=== PATIENT | female | born 1970 | race Caucasian/White ===

== ENCOUNTER 2025-02-11 17:11 | Inpatient (IN) | payer OTHER ==
[~2025-02-11] VITALS: Ht 157.5 cm; Wt 65.8 kg
[2025-02-11 17:17] VITALS: O2SAT 98
[2025-02-11 17:48] LABS: HEMATOCRIT. 40.1 % (36.0-48.0); HEMOGLOBIN. 13.8 g/dL (12.0-16.0); MEAN PLATELET VOLUME 7.5 fl (7.4-10.4); PLATELET 270 x1000/uL (130-400); RED BLOOD CELL COUNT 4.57 mill/uL (4.2-5.4); RED CELL DISTRIBUTION WIDTH 13.3 % (11.6-14.6)
[2025-02-11 18:02] LABS: CREATININE 1.0 mg/dL (0.6-1.0); UREA NITROGEN BLOOD 9 mg/dL (9-23)
[2025-02-11 18:03] LABS: PROTEIN TOTAL 7.4 g/dL (6.0-8.3)
[2025-02-11 18:04] LABS: ASPARTATE AMINOTRANSFERASE 32 IU/L (<34); BILIRUBIN DIRECT 0.6 mg/dL (<=3.0); BILIRUBIN TOTAL 2.2 mg/dL (0.1-1.0)
[2025-02-11] MEDS: MORPHINE SULFATE 4 MG/ML INJ (FOR IV/IM USE) IV ONE ×2 (18:17→21:13)
[2025-02-11] MEDS: ONDANSETRON HCL 4MG/2ML INJ IV ONE (18:17)
[2025-02-11] MEDS: SODIUM CHLORIDE 0.9% 1,000 ML IV ONE (18:17)
[2025-02-11 18:19] LABS: HCG SCREEN NEGATIVE
[2025-02-11 18:27] LABS: GLUCOSE URINE NEGATIVE (NEGATIVE); KETONES URINE 2+ (NEGATIVE); LEUKOCYTE ESTERASE URINE 2+ (NEGATIVE); NITRITE URINE NEGATIVE (NEGATIVE); OCCULT BLOOD URINE TRACE (NEGATIVE); PH URINE 5.5 (4.5-8.0); PROTEIN URINE 1+ (NEGATIVE); SPECIFIC GRAVITY URINE 1.024 (1.005-1.030); UROBILINOGEN URINE 1.0 E.U./dL (0.2-1.0)
[2025-02-11 19:00] LABS: CLARITY URINE HAZY (CLEAR); COLOR URINE YELLOW (YELLOW)
[2025-02-11 19:01] LABS: RBC URINE NONE SEEN /hpf (0-2); SQUAMOUS EPITHELIAL CELL URINE 2+ /lpf (RARE/1+)
[2025-02-11 19:02] LABS: BACTERIA URINE 1+
[2025-02-11 19:03] LABS: MUCUS URINE 1+ /lpf (< = 2+)
[2025-02-11 19:14] LABS: BAND% 3.0 % (1.0-6.0); LYMPHOCYTES % MANUAL 5.0 % (20.0-60.0); MONOCYTES % MANUAL 6.0 % (2.0-8.0); NEUTROPHILS % MANUAL 86.0 % (45.0-75.0); PLATELET ESTIMATE NORMAL
[2025-02-11] MEDS: PIPERACILLIN/TAZO 3.375G/50ML 50 ML IV STA (20:02)
[2025-02-11] MEDS ORDERED: NALOXONE HCL 0.4MG/ML VIAL IV PRN (21:45)
[2025-02-11] MEDS ORDERED: MAGNESIUM/ALUMINUM HYDROXIDE/SIMETHICONE 30ML UDC PO PRN (21:45)
[2025-02-11] MEDS ORDERED: HYDROMORPHONE HCL/PF 1MG/ML INJ IV PRN (21:45)
[2025-02-11] MEDS ORDERED: CLONIDINE 0.1MG TABLET PO PRN (21:45)
[2025-02-11] MEDS ORDERED: MORPHINE SULFATE 2 MG/ML INJ (NOT FOR IM USE) IV PRN ×2 (21:45→22:00)
[2025-02-11] MEDS ORDERED: LABETALOL 5MG/ML 4ML INJ IV PRN (21:45)
[2025-02-11] MEDS ORDERED: ONDANSETRON HCL 4MG/2ML INJ IV PRN ×3 (21:45→22:00)
[2025-02-11] MEDS ORDERED: SODIUM CHLORIDE 0.9% 1,000 ML IV SCH (21:45)
[2025-02-11] MEDS ORDERED: HYDRALAZINE 20MG/ML VIAL IV PRN ×2 (21:45)
[2025-02-11] MEDS ORDERED: HYDROCODONE/ACETAMINOPHEN 5/325MG TABLET PO PRN ×2 (21:45→22:00)
[2025-02-11] MEDS ORDERED: ZOLPIDEM TARTRATE 5MG TABLET PO PRN (21:45)
[2025-02-11] MEDS ORDERED: IOHEXOL-300 100 ML BOTTLE ONE (21:46)
[2025-02-11] MEDS ORDERED: ACETAMINOPHEN 1000MG/100ML 100 ML IV ONE (21:48)
[2025-02-11] MEDS ORDERED: FAMOTIDINE 20MG/2ML VIAL IV ONE (21:49)
[2025-02-11] MEDS ORDERED: SKIN ADHESIVE 0.7 GM EA TOP ONE (21:53)
[2025-02-11] MEDS ORDERED: BUPIVACAINE HCL/PF 0.5% (5MG/ML) 10ML ONE (21:53)
[2025-02-11] MEDS ORDERED: HYDROCODONE/ACETAMINOPHEN 10/325MG TABLET PO PRN (22:00)
[2025-02-11] MEDS: ENOXAPARIN 40MG/0.4ML SYR SUBCUT SCH (22:00)
[2025-02-11] MEDS ORDERED: DEXT 5%/0.45% NACL KCL 20MEQ/L 1,000 ML IV SCH (23:00)
[2025-02-11] MEDS ORDERED: IOHEXOL-350 100 ML BOTTLE ONE (23:55)
[2025-02-12 00:20] VITALS: BP 105/50; PULSE 70; RESP 14; TEMP 36.5292
[2025-02-12] MEDS: DEXT 5%/0.45% NACL KCL 20MEQ/L 1,000 ML IV SCH (00:36)
[2025-02-12 04:00] VITALS: BP 97/61; PULSE 66; RESP 16; TEMP 36.3; O2SAT 99
[2025-02-12] MEDS: PIPERACILLIN/TAZO 3.375G/50ML 50 ML IV SCH (04:50)
[2025-02-12 08:30] LABS: HEMATOCRIT. 37.5 % (36.0-48.0); HEMOGLOBIN. 12.6 g/dL (12.0-16.0); RED BLOOD CELL COUNT 4.21 mill/uL (4.2-5.4); RED CELL DISTRIBUTION WIDTH 13.5 % (11.6-14.6)
[2025-02-12] MEDS: PANTOPRAZOLE SODIUM 40 MG/VIAL IV SCH (08:44)
[2025-02-12 08:47] VITALS: BP 100/53; PULSE 70; RESP 20; TEMP 36.6; O2SAT 98
[2025-02-12 09:19] LABS: CREATININE 0.8 mg/dL (0.6-1.0); UREA NITROGEN BLOOD 10 mg/dL (9-23)
[2025-02-12 10:02] LABS: BAND% 30.0 % (1.0-6.0); LYMPHOCYTES % MANUAL 8.0 % (20.0-60.0); MONOCYTES % MANUAL 5.0 % (2.0-8.0); NEUTROPHILS % MANUAL 57.0 % (45.0-75.0); PLATELET ESTIMATE NORMAL
[2025-02-12 10:03] LABS: PLATELET 178 x1000/uL (130-400)
[2025-02-12 10:27] LABS: *AMPHETAMINES SCREEN URINE NEGATIVE (NEGATIVE); *BARBITURATES SCREEN URINE NEGATIVE (NEGATIVE); *BENZODIAZEPINES SCREEN URINE NEGATIVE (NEGATIVE); *COCAINE SCREEN URINE NEGATIVE (NEGATIVE); CANNABINOID URINE SCREEN NEGATIVE (NEGATIVE); ECSTASY MDMA SCREEN URINE NEGATIVE (NEGATIVE); METHADONE URINE SCREEN NEGATIVE (NEGATIVE); OPIATES URINE SCREEN NEGATIVE (NEGATIVE); PHENCYCLIDINE URINE SCREEN NEGATIVE (NEGATIVE)
[2025-02-12 12:00] VITALS: BP 101/64; RESP 18; TEMP 36.5; O2SAT 98
[2025-02-12] MEDS: ACETAMINOPHEN 325MG TABLET PO PRN (13:06)
[2025-02-12 16:00] VITALS: BP 108/59; RESP 20; TEMP 36.3; O2SAT 98
[2025-02-12 20:00] VITALS: BP 114/76; RESP 18; TEMP 36.4; O2SAT 98
[2025-02-13] VITALS: BP 102/68; RESP 18; TEMP 36.6; O2SAT 99
[2025-02-13 04:00] VITALS: BP 107/55; RESP 16; TEMP 37.1; O2SAT 99
[2025-02-13 08:00] VITALS: BP 110/59; PULSE 77; RESP 18; TEMP 37.4; O2SAT 96
[2025-02-13 08:03] LABS: HEMATOCRIT. 34.8 % (36.0-48.0); HEMOGLOBIN. 11.9 g/dL (12.0-16.0); MEAN PLATELET VOLUME 8.4 fl (7.4-10.4); PLATELET 220 x1000/uL (130-400); RED BLOOD CELL COUNT 3.93 mill/uL (4.2-5.4); RED CELL DISTRIBUTION WIDTH 13.6 % (11.6-14.6)
[2025-02-13 08:17] LABS: CREATININE 0.7 mg/dL (0.6-1.0); UREA NITROGEN BLOOD 9 mg/dL (9-23)
[2025-02-13 12:00] VITALS: BP 117/61; PULSE 79; RESP 20; TEMP 37.1; O2SAT 95
[2025-02-13 13:31] LABS: BAND% 24.0 % (1.0-6.0); LYMPHOCYTES % MANUAL 8.0 % (20.0-60.0); MONOCYTES % MANUAL 4.0 % (2.0-8.0); NEUTROPHILS % MANUAL 64.0 % (45.0-75.0); PLATELET ESTIMATE NORMAL
[2025-02-13] MEDS: PIPERACILLIN/TAZO 3.375G/50ML 50 ML IV SCH (14:00)
[2025-02-13 15:39] VITALS: BP 117/61; PULSE 79; RESP 20; TEMP 98.7
[2025-02-13 16:00] VITALS: BP 104/45; PULSE 83; RESP 20; TEMP 37.1; O2SAT 96
[2025-02-13] MEDS ORDERED: LEVO750T68 MT (17:06)
== END 2025-02-13 18:20 | disposition home or self-care (01) | DRG 398 ==
LOC: ER 17:11 → 6EST 20:47 → ENRESERV 21:17
PROVIDERS: ADMIT Internal Medicine; ATTEND Internal Medicine
PROC: 0DTJ4ZZ Resection of Appendix, Percutaneous Endoscopic Approach (ICD-10-PCS; principal; 2025-02-11)
DX: K35.80 Unspecified acute appendicitis (principal); N39.0 Urinary tract infection, site not specified; D72.829 Elevated white blood cell count, unspecified; E11.9 Type 2 diabetes mellitus without complications; I10 Essential (primary) hypertension
CPT/HCPCS: 36415; 74177; 80048; 80076; 80305; 81003; 84443; 84703; 85025; 87077; 87186; 88304; 93005; 93970; 99291; A4606; A4615; J0665; J1308; J1650; J2270; J2405; J2470; J2543; J7030; Q9967; A4217; J0131